=== PATIENT | male | born 1960 | race Hispanic/Latino ===

== ENCOUNTER 2019-09-02 09:20 | Inpatient (IN) | payer OTHER ==
[~2019-09-02] VITALS: Ht 165.1 cm; Wt 116.6 kg
[2019-09-02 10:10] LABS: BASOPHILS % 0.3 % (0.0-1.0); EOSINOPHILS # (AUTO) 0.2 (0.0-0.4); EOSINOPHILS % 1.6 % (0.0-6.0); HEMATOCRIT 36.7 % (38.2-49.6); HEMOGLOBIN 11.6 g/dL (14.0-18.0); LYMPHOCYTES # (AUTO) 1.2 (1.0-3.2); LYMPHOCYTES % 9.8 % (18.0-39.1); MEAN CORPUSCULAR HEMOGLOBIN 30.1 pg (28-32); MEAN CORPUSCULAR HGB CONC 31.6 g/dL (31-35); MEAN CORPUSCULAR VOLUME 95.1 fL (81-99); MONOCYTES # (AUTO) 0.9 (0.2-0.8); MONOCYTES % 7.1 % (4.4-11.3); NEUTROPHILS # (AUTO) 9.8 (2.1-6.9); PLATELET COUNT 207 x10e3/uL (140-360); RED BLOOD COUNT 3.86 x10e6/uL (4.3-5.7); RED CELL DISTRIBUTION WIDTH 13.1 % (11.7-14.4)
[2019-09-02] MEDS ORDERED: HYDROCHLOROTH12.5 MG PO (10:12)
[2019-09-02] MEDS ORDERED: SIMVASTATIN40 MG PO (10:12)
[2019-09-02] MEDS ORDERED: PIOGLITAZONE HC45 MG PO (10:12)
[2019-09-02] MEDS ORDERED: MOTRIN800 MG PO (10:12)
[2019-09-02] MEDS ORDERED: GLIPIZIDE-METF1 EAC2 PO (10:12)
[2019-09-02] MEDS ORDERED: LOSARTAN POTAS100 MG PO (10:12)
[2019-09-02 10:21] LABS: INR 0.92; PROTHROMBIN TIME 12.8 seconds (11.9-14.5)
[2019-09-02 10:22] LABS: PARTIAL THROMBOPLASTIN TIME 28.3 seconds (23.8-35.5)
[2019-09-02 10:29] LABS: ALBUMIN 3.5 g/dL (3.5-5.0); ALBUMIN/GLOBULIN RATIO 0.9 (0.8-2.0); CALCIUM 9.4 mg/dL (8.4-10.2); CREATININE, SERUM 1.44 mg/dL (0.72-1.25)
[2019-09-02 10:35] LABS: CREATINE KINASE MB 2.7 ng/mL (0-5.0)
[2019-09-02] MEDS ORDERED: INSULIN REGULAR, HUMAN 100 UNIT/1 ML 3ML VIAL SQ ONE (10:45)
--- NOTE | 2019-09-02 10:48 | Diagnostic Imaging Report ---
EXAMINATION: CHEST 2 VIEWS INDICATION: Respiratory distress COMPARISON: None FINDINGS: LINES/TUBES:Back or EKG LUNGS:The lungs are moderately inflated. There is perihilar fullness and indistinctness of the pulmonary vasculature. Bilateral lower lobe predominant airspace opacities. PLEURA:Circumferential small bilateral pleural effusion right greater than left. MEDIASTINUM:The heart is enlarged. BONES/SOFT TISSUES:No acute osseous injury. ABDOMEN:No free air under the diaphragm. IMPRESSION: Cardiomegaly, pulmonary edema, and small bilateral circumferential pleural effusions. Signed by: Robert Quinteros MD on 09/02/2019 10:45 AM
[2019-09-02] MEDS ORDERED: FUROSEMIDE INJ 10 MG/ML 4 ML VIAL IV ONE (11:15)
[2019-09-02] MEDS: LEVOFLOXACIN 750MG/D5W 150ML 150 ML IV SCH (13:17)
--- NOTE | 2019-09-02 13:19 | Diagnostic Imaging Report ---
EXAMINATION: CT of the chest with contrast, PE protocol. TECHNIQUE: Spiral CT images of the chest were performed from the lung apices through the level of the adrenal glands after the IV administration of 100 cc of Isovue-370. Thin section reconstructions were obtained with special concentration on the pulmonary arteries. COMPARISON: Chest radiograph same day CLINICAL HISTORY:Hypoxemia, cough, concern for pulmonary DISCUSSION: Vasculature: The main pulmonary artery and right and left pulmonary arteries are patent. There are multiple segmental hypoattenuating filling defects within both lower lower lobe pulmonary arterial systems, for example the superior segment of the left lower lobe seen on series 2 image 61, the anterior segment of the left lower lobe seen on series 2 image 70, the posterior basal segment of the left lower lobe seen on series 2, image 77, the anterior segment of the right lower lobe seen on series 2 image 70, in the posterior basal segment of the right lower lobe seen on series 2 image 79. Filling defects in the medial segmental artery of the right middle lobe are also seen on series 2 image 62. Anterior right upper lobe segmental pulmonary embolus is also noted on series 2 image 47. The pulmonary outflow tract is of normal caliber. No interventricular septal bowing or right ventricular dilatation. No ectasia or aneurysmal dilatation of the thoracic aorta. Great vessel origins are of normal caliber and configuration. Atherosclerotic calcifications of the left anterior descending coronary artery. Lungs: Multifocal patchy and confluent groundglass and consolidative opacities at highest density laterally within the right middle lobe, though affecting the left greater than right upper lobes and bilateral lower lobes as well. 6 mm juxtapleural left lower lobe solid nodule seen on series 3 image 84. 5 mm juxtapleural solid nodule left lower lobe seen on series 3 image 76. Airways: Trachea, mainstem bronchi, and central lobar and segmental bronchi are patent. Pleura: No pleural effusion or pneumothorax. Suspected pleural effusions on plain radiography same day shown to represent prominent extrapleural fat. Heart and mediastinum: Visualized portions of the thyroid gland appear normal. No axillary, hilar, or mediastinal lymphadenopathy. No pericardial effusion. Abdomen: Visualized portions of the liver, gallbladder, spleen, pancreas, and adrenals are unremarkable. Bones and soft tissues: No osseous destructive lesions. Multilevel degenerative disc changes of the thoracic spine. IMPRESSION: Bilateral segmental pulmonary emboli affecting the right upper, middle, and lower lobes and the left lower lobe as detailed above. No CT findings of right heart strain. Pulmonary parenchymal findings compatible with multifocal pneumonia affecting the right middle lobe to the greatest extent. 5 and 6 mm left lower lobe pulmonary nodules are likely also infectious in nature. Follow-up CT scan of the chest in 3-6 months after appropriate treatment is suggested to document resolution. Atherosclerotic vascular disease. Findings were discussed by telephone with Dr. Hernandez of the emergency center at 1:03 PM 09/02/2019. Signed by: Dr. Agustín Gee M.D. on 09/02/2019 1:16 PM
[2019-09-02] MEDS ORDERED: ENOXAPARIN SOD INJ 120 MG/0.8 ML SYR SC SCH (13:30)
[2019-09-02] MEDS ORDERED: ASPIRIN 81 MG CHEW TAB PO ONE (14:15)
[2019-09-02] MEDS ORDERED: SODIUM CHLORIDE FLUSH 10 ML SYR INJ PRN (14:15)
[2019-09-02 14:25] LABS: BILIRUBIN,URINE NEGATIVE (NEGATIVE); CLARITY,URINE CLEAR (CLEAR); COLOR,URINE YELLOW (YELLOW); KETONES,URINE NEGATIVE (NEGATIVE); LEUKOCYTE ESTERASE ,URINE NEGATIVE (NEGATIVE); NITRITE,URINE NEGATIVE (NEGATIVE); PROTEIN,URINE DIPSTICK NEGATIVE (NEGATIVE); URINE UROBILINOGEN 0.2 mg/dL (0.2 - 1)
[2019-09-02] MEDS ORDERED: LEVOFLOXACIN 750MG/D5W 150ML 150 ML IV SCH (14:30)
[2019-09-02] MEDS ORDERED: DEXTROSE 50% SYRINGE 50 ML IV PRN (14:45)
[2019-09-02] MEDS ORDERED: IOPAMIDOL 370 MG/ML 200 ML INFUS..BTL INJ ONE (14:52)
[2019-09-02] MEDS ORDERED: SODIUM CHLORIDE 0.9% 50ML 50 ML ONE (14:52)
[2019-09-02] MEDS: ALBUTEROL/IPRATROPIUM 3 ML NEB NEB SCH ×3 (15:00→23:39)
--- OUTSIDE RECORDS SUMMARY | 2019-09-02 15:10 | XMS REPORT ---
Author Author [facility] Address Unknown Phone Unavailable Care Team Providers Care Supervisor Policy Change Clerks Name Role Phone Nohemy FAIRCHILD Unavailable Unavailable Problems This patient has no known problems. Allergies, Adverse Reactions, Alerts This patient has no known allergies or adverse reactions. Medications This patient has no known medications. Results Test Description Test Time Test Comments Text Results Atomic Results Result Comments CT CHEST W 2019-09-02 13:03:00 [facility] [address] [place] [address] Patient Name: JUANY GARCIA MR #: [id number] : 1960 Age/Sex: 59/M Req #: [id number] Adm Physician: Ordered by: CAROLYN NGUYEN BRYOLOGIST Report #: [id number] Location: ER Room/Bed: Procedure: [id number] CT/CT CHEST W Exam Date: 09/02/19 Exam Time: 1230 REPORT STATUS: Signed EXAMINATION: CT of the chest with contrast, PE protocol. TECHNIQUE: Spiral CT images of the chest were performed from the lung apices through the level of the adrenal glands after the IV administration of 100 cc of Isovue-370. Thin section reconstructions were obtained with special concentration on the pulmonary arteries. COMPARISON: Chest radiograph same day CLINICAL HISTORY:Hypoxemia, cough, concern for pulmonary DISCUSSION: Vasculature: The main pulmonary artery and right and left pulmonary arteries are patent. There are multiple segmental hypoattenuating filling defects within both lower lower lobe pulmonary arterial systems, for example the superior segment of the left lower lobe seen on series 2 image 61, the anterior segment of the left lower lobe seen on series 2 image 70, the posterior basal segment of the left lower lobe seen on series 2, image 77, the anterior segment of the right lower lobe seen on series 2 image 70, in the posterior basal segment of the right lower lobe seen on series 2 image 79. Filling defects in the medial segmental artery of the right middle lobe are also seen on series 2 image 62. Anterior right upper lobe segmental pulmonary embolus is also noted on series 2 image 47. The pulmonary outflow tract is of normal caliber. No interventricular septal bowing or right ventricular dilatation. No ectasia or aneurysmal dilatation of the thoracic aorta. Great vessel origins are of normal caliber and configuration. Atherosclerotic calcifications of the left anterior descending coronary artery. Lungs: Multifocal patchy and confluent groundglass and consolidative opacities at highest density laterally within the right middle lobe, though affecting the left greater than right upper lobes and bilateral lower lobes as well. 6 mm juxtapleural left lower lobe solid nodule seen on series 3 image 84. 5 mm juxtapleural solid nodule left lower lobe seen on series 3 image 76. Airways: Trachea, mainstem bronchi, and central lobar and segmental bronchi are patent. Pleura: No pleural effusion or pneumothorax. Suspected pleural effusions on plain radiography same day shown to represent prominent extrapleural fat. Heart and mediastinum: Visualized portions of the thyroid gland appear normal. No axillary, hilar, or mediastinal lymphadenopathy. No pericardial effusion. Abdomen: Visualized portions of the liver, gallbladder, spleen, pancreas, and adrenals are unremarkable. Bones and soft tissues: No osseous destructive lesions. Multilevel degenerative disc changes of the thoracic spine. IMPRESSION: Bilateral segmental pulmonary emboli affecting the right upper, middle, and lower lobes and the left lower lobe as detailed above. No CT findings of right heart strain. Pulmonary parenchymal findings compatible with multifocal pneumonia affecting the right middle lobe to the greatest extent. 5 and 6 mm left lower lobe pulmonary nodules are likely also infectious in nature. Follow-up CT scan of the chest in 3-6 months after appropriate treatment is suggested to document resolution. Atherosclerotic vascular disease. Findings were discussed by telephone with Dr. Fairchild of the emergency center at 1:03 PM 09/02/2019. Signed by: Dr. Kayley Castro M.D. on 09/02/2019 1:16 PM Dictated By: KAYLEY CASTRO MD 15 Transcribed By: LA NENA on 09/02/191315 COPY TO: CAROLYN NGUYEN NP CHEST 2 VIEWS 2019-09-02 10:44:00 [place] [address] Patient Name: JUANY GARCIA MR #: [id number] : 1960 Age/Sex: 59/M Req #: [id number] Adm Physician: Ordered by: AKBAR FAIRCHILD MD Report #: [id number] Location: ER Room/Bed: Procedure: [id number] DX/CHEST 2 VIEWS Exam Date: 09/02/19 Exam Time: 916 REPORT STATUS: Signed EXAMINATION: CHEST 2 VIEWS INDICATION: Respiratory distress COMPARISON: None FINDINGS: LINES/TUBES:Back or EKG LUNGS:The lungs are moderately inflated. There is perihilar fullness and indistinctness of the pulmonary vasculature. Bilateral lower lobe predominant airspace opacities. PLEURA:Circumferential small bilateral pleural effusion right greater than left. MEDIASTINUM:The heart is enlarged. BONES/SO FT TISSUES:No acute osseous injury. ABDOMEN:No free air under the diaphragm. IMPRESSION: Cardiomegaly, pulmonary edema, and small bilateral circumferential pleural effusions. Signed by: Terrence Becker MD on 09/02/2019 10:45 AM Dictated By: TERRENCE BECKER MD 1045 Transcribed By: LA NENA on 09/02/19 104 COPY TO: AKBAR FAIRCHILD MD
[2019-09-02 15:26] LABS: ABG PCO2 45 mmHg (41-51); ABG PH 7.47 (7.31-7.41); ABG PO2 178 mmHg (80-105)
[2019-09-02 15:27] LABS: ABG HCO3 33 mmol/L (23-28)
[2019-09-02 15:30] VITALS: BP 132/58
--- NOTE | 2019-09-02 15:30 | NUR ---
Pt received from ER via stretcher with son & at bedside. Alert and oriented x4, Syrian speaking mostly. Oriented to staff and surroundings. Advised to press call shin if help needed. Emotional support given. Call shin within reach. Will monitor
[2019-09-02] MEDS: INSULIN REGULAR, HUMAN 100 UNIT/1 ML 3ML VIAL SQ SCH ×2 (16:23→20:34)
[2019-09-02] MEDS ORDERED: ACETAMINOPHEN 325 MG TAB PO PRN (17:15)
[2019-09-02] MEDS ORDERED: GUAIFENESIN 200 MG/10 ML UDC PO PRN (17:15)
--- NOTE | 2019-09-02 17:30 | NUR ---
Dr. Jacobs's office notified regarding consult. Will monitor
--- NOTE | 2019-09-02 17:36 | Pre Op History & Physical ---
Mr. 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 CHIEF COMPLAINT: He is sent from Dr. Pang's office, where he presented this morning with a week's worth of coughing. Evidently, chest x-ray suggested pneumonia. PAST MEDICAL HISTORY: Significant for longstanding diabetes at least 20 years. The patient denies any history of any cardiac problem to me. He says he has never had any surgeries before. HOME MEDICATIONS: Include furosemide, famotidine, lisinopril 10 mg daily, Actos 45 mg daily, simvastatin 40 mg daily, and spironolactone 25 mg daily. PERSONAL AND SOCIAL HISTORY: He does not smoke or drink. Works in maintenance. REVIEW OF SYSTEMS: GENERAL: He reports that he has probably gained some weight in the last year. PHYSICAL EXAMINATION: GENERAL: At this time shows an obese, man speaking primarily Peruvian. VITAL SIGNS: He is 5 feet 5 inches tall, weighs 257 pounds, blood pressure 130/60, pulse is 90 and regular. HEAD, EYES, EARS, NOSE, AND THROAT: Unremarkable. NECK: Very thick. No jugular venous distention visible. No bruits. THORAX: Heart sounds S1 and S2 are equal. No murmurs. LUNGS: Relatively clear. ABDOMEN: Markedly protuberant. EXTREMITIES: Have some trophic changes, but no significant edema. LABORATORY DATA: CAT scan of the chest suggests probable right middle lobe pneumonia and multiple pulmonary emboli. White count 12.0. Presenting glucose 471, BUN 24, and creatinine 1.4. ASSESSMENT: 1. Pneumonia. 2. Multiple pulmonary emboli. 3. Longstanding diabetes, probably poorly controlled. He tells me he never checks fingerstick blood sugar. 4. Obesity. PLAN: We will continue home medications, broad-spectrum antibiotic coverage, and we will start Xarelto for DVT and pulmonary emboli. We will check echo and venous Doppler scan of the legs. Further management based on clinical course. MD KASSY Gamino/MODL /[id number] cc: MaxMD Shen Quintanilla MD George M Nassif, MD
[2019-09-02] MEDS: FUROSEMIDE INJ 10 MG/ML 4 ML VIAL IV SCH (17:48)
[2019-09-02] MEDS: FAMOTIDINE 20 MG/2 ML VIAL IV SCH (17:48)
[2019-09-02] MEDS: RIVAROXABAN 15 MG TABLET PO SCH (17:48)
[2019-09-02 18:28] LABS: CREATINE KINASE MB 2.3 ng/mL (0-5.0)
[2019-09-02 19:00] VITALS: BP 120/71
[2019-09-02] MEDS: SIMVASTATIN 40 MG TAB PO SCH (20:33)
[2019-09-02 21:00] VITALS: BP 120/71
[2019-09-02] MEDS ORDERED: ENOXAPARIN SODIUM INJ 100 MG/ML SYR SC SCH (21:00)
[2019-09-02 23:00] VITALS: BP 98/61
[2019-09-03] VITALS (7 sets, daily range): BP systolic 105–130; BP diastolic 51–77
--- NOTE | 2019-09-03 00:37 | Consultation ---
DATE OF CONSULTATION: 09/02/2019 Pulmonary Medicine Consult PRIMARY CARE DOCTOR: Dr. Max Pang. HISTORY OF PRESENT ILLNESS: Mr. Monroe is a pleasant 59-year-old gentleman with coughing. The patient came to emergency room, sent from his primary care doctor's office. The patient has 1 week of symptoms. The patient with worsening pattern of symptoms. The patient comes to the emergency room. Heart rate is 137 beats per minute. Temperature was normal. The patient had a white blood count of 12,000, creatinine 1.4. Chest x-ray, bilateral pneumonia. CT angiography of chest with main PA artery of 34 mm size, bilateral small pulmonary emboli, nodules up to 6 mm in size. He is admitted and I am consulted. PAST MEDICAL HISTORY: Diabetes, obesity, hypertension, hyperlipidemia. MEDICATIONS: Medication list reviewed per the chart record. ALLERGIES: NO KNOWN DRUG ALLERGIES. SOCIAL HISTORY: The patient drinks 12 beers per week, but quit a few years ago. He smoked tobacco only for 8 years of his life. He is mainly a nonsmoker. No drugs. He works in industrial maintenance. He lives with 2 sons and , who are age 21 and 24 and are healthy. FAMILY HISTORY: Noncontributory. REVIEW OF SYSTEMS: GENERAL: No recent weight loss. HENT: No mouth ulcers. OPHTHALMOLOGIC: No blurry vision. ENDOCRINE: No thyroid disease. PULMONARY: No known asthma. CARDIAC: No heart attack. GI: No constipation. : No blood in urine. DERMATOLOGIC: No rash. NEUROLOGIC: No seizures. PHYSICAL EXAMINATION: VITAL SIGNS: Afebrile, vital signs noted and reviewed per the chart record. GENERAL: In no acute distress, alert and calm now. Intermittent cough. HEENT: Normocephalic and atraumatic. NECK: Supple. Throat midline. LUNGS: Bilateral air entry, rare rhonchi. CARDIOVASCULAR: S1 and S2. No murmurs, rubs, or gallops. ABDOMEN: Soft, nontender, obese. EXTREMITIES: No clubbing. No cyanosis. There is 1+ edema. INTEGUMENT: No rash. No purpura. LABORATORY DATA: Labs included presenting glucose of 471. Bicarbonate 30. Platelets 207. IMPRESSION AND PLAN: 1. Bilateral pneumonia, community-acquired. 2. Bilateral pulmonary emboli. Onset can be anywhere from provoked due to pneumonia versus unprovoked from 3 months ago given his history of leg swelling on the right leg. 3. Longstanding diabetes. 4. Hyperlipidemia. 5. Hypertension. 6. 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 7. Obesity, suspected obstructive sleep apnea. At this time, the patient should continue antibiotics. Ensure chest x-ray improves. Continue anticoagulation, which has been changed from Lovenox to long-acting novel oral anticoagulant. The patient should have outpatient sleep study. We wait lower extremity Doppler and if there is no high burden of clots, he may be able to mobilize earlier and go home earlier. We will follow along closely. Thank you very much, Dr. Flores and Dr. Pang, for allowing me a chance to participate in the care of Mr. Monroe. MD VIOLETA Medina/RYAN /[id number]
[2019-09-03 02:11] LABS: CREATINE KINASE MB 1.9 ng/mL (0-5.0)
[2019-09-03] MEDS: ALBUTEROL/IPRATROPIUM 3 ML NEB NEB SCH ×6 (03:45→23:22)
[2019-09-03 05:25] LABS: BASOPHILS % 0.5 % (0.0-1.0); EOSINOPHILS # (AUTO) 0.3 (0.0-0.4); EOSINOPHILS % 3.2 % (0.0-6.0); HEMATOCRIT 36.4 % (38.2-49.6); HEMOGLOBIN 11.6 g/dL (14.0-18.0); LYMPHOCYTES # (AUTO) 1.8 (1.0-3.2); LYMPHOCYTES % 20.6 % (18.0-39.1); MEAN CORPUSCULAR HEMOGLOBIN 30.2 pg (28-32); MEAN CORPUSCULAR HGB CONC 31.9 g/dL (31-35); MEAN CORPUSCULAR VOLUME 94.8 fL (81-99); MONOCYTES # (AUTO) 0.8 (0.2-0.8); MONOCYTES % 9.6 % (4.4-11.3); NEUTROPHILS # (AUTO) 5.6 (2.1-6.9); NEUTROPHILS % 65.7 % (38.7-80.0); PLATELET COUNT 197 x10e3/uL (140-360); RED BLOOD COUNT 3.84 x10e6/uL (4.3-5.7); RED CELL DISTRIBUTION WIDTH 13.2 % (11.7-14.4)
[2019-09-03 05:45] LABS: ALANINE AMINOTRANSFERASE 10 IU/L (0-55); ALBUMIN 3.3 g/dL (3.5-5.0); ALBUMIN/GLOBULIN RATIO 0.9 (0.8-2.0); ALKALINE PHOSPHATASE 90 IU/L (40-150); ANION GAP 13.4 mmol/L (8-16); BLOOD UREA NITROGEN 23 mg/dL (7-26); BUN/CREATININE RATIO 19 (6-25); CALCIUM 9.1 mg/dL (8.4-10.2); CARBON DIOXIDE 31 mmol/L (22-29); CHLORIDE 101 mmol/L (98-107); CREATININE, SERUM 1.22 mg/dL (0.72-1.25); EST GLOMERULAR FILTRATION RATE > 60 ML/MIN (60-); GLUCOSE 132 mg/dL (74-118); POTASSIUM 3.4 mmol/L (3.5-5.1); SODIUM 142 mmol/L (136-145)
--- NOTE | 2019-09-03 07:10 | NUR ---
Pt received resting in bed with at bedside. Emotional support given. Call shin within reach. Will monitor
[2019-09-03] MEDS: INSULIN REGULAR, HUMAN 100 UNIT/1 ML 3ML VIAL SQ SCH ×2 (08:34→11:30)
[2019-09-03] MEDS: LISINOPRIL 10 MG TAB PO SCH (08:35)
[2019-09-03] MEDS: SPIRONOLACTONE 25 MG TAB PO SCH (08:35)
[2019-09-03] MEDS: FUROSEMIDE INJ 10 MG/ML 4 ML VIAL IV SCH ×2 (08:35→17:12)
[2019-09-03] MEDS: FAMOTIDINE 20 MG/2 ML VIAL IV SCH ×2 (08:35→17:12)
[2019-09-03] MEDS: LOSARTAN POTASSIUM 100 MG TAB PO SCH (08:35)
[2019-09-03] MEDS: RIVAROXABAN 15 MG TABLET PO SCH ×2 (08:35→17:12)
[2019-09-03] MEDS ORDERED: PIOGLITAZONE HCL 45 MG TAB PO SCH (09:00)
[2019-09-03] MEDS ORDERED: LEVOFLOXACIN 750MG/D5W 150ML IV SCH (09:00)
[2019-09-03 10:38] LABS: CREATINE KINASE MB 2.2 ng/mL (0-5.0)
--- NOTE | 2019-09-03 13:52 | Diagnostic Imaging Report ---
EXAMINATION: CHEST SINGLE (PORTABLE) INDICATION: Pneumonia. COMPARISON: 09/02/2019. FINDINGS: LINES/TUBES:None. LUNGS: Pulmonary vascular congestion and perihilar opacities have improved suggestive of improving pulmonary edema. Bilateral patchy calcifications have also improved from prior exam. PLEURA: Bilateral pleural effusions have nearly completely resolved. MEDIASTINUM:The heart is enlarged, unchanged from prior exam. BONES/SOFT TISSUES:No acute osseous injury. ABDOMEN:No free air under the diaphragm. IMPRESSION: 1. Improved pulmonary edema. 2. Improved bilateral patchy consolidations/pneumonia. Signed by: Eladio Kessler MD on 09/03/2019 7:28 AM
[2019-09-03] MEDS: LEVOFLOXACIN 750MG/D5W 150ML 150 ML IV SCH (14:05)
--- NOTE | 2019-09-03 16:28 | NUR ---
Pulmonary Medicine DATE: 09/03/2019 SUBJECTIVE: 4 L/min oxygen, 96% saturation 83-85% RA CXR with decreased pneumonia US legs with NO DVT REVIEW OF SYSTEMS: no double vision, no bleeding PHYSICAL EXAMINATION: VITAL SIGNS: vital signs noted per the chart record. GENERAL: NAD, alert and calm HEENT: Normocephalic and atraumatic. NECK: Supple. Throat midline. LUNGS: Bilateral air entry, rare rhonchi. CARDIOVASCULAR: S1 and S2. No murmurs, rubs, or gallops. ABDOMEN: Soft, nontender, obese. EXTREMITIES: No clubbing. No cyanosis. 1+ edema INTEGUMENT: No rash. No purpura. LABORATORY DATA: k 3.4, cr 1.22, wbc 8.54, hct 36, plt 197. IMPRESSION AND PLAN: 1. Bilateral pneumonia, community-acquired. 2. Bilateral pulmonary emboli. Likely provoked from pneumonia. There is a competing history of right leg edema x 3 months. 3. Longstanding diabetes. 4. Hyperlipidemia. 5. Hypertension. 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 Obesity, suspected obstructive sleep apnea. Possible obesity hypoventilation syndrome. continue antibiotics ensure chest x-ray improves, could be a 6-8 weeks follow up CXR if he continues to improve continue anticoagulation, NOAC outpatient sleep study ambulate the patient to check his cardiopulmonary reserve. patient has +hypoxemia and may require home oxygen. Thank you very much, Dr. Flores and Dr. Pang, for allowing me a chance to participate in the care of Mr. Monroe.
[2019-09-03] MEDS ORDERED: POTASSIUM CHLORIDE 20 MEQ TAB CR PO ONE (17:00)
[2019-09-03] MEDS: INSULIN LISPRO 100 UNIT/1 ML 3ML VIAL SQ SCH ×3 (17:14→20:26)
[2019-09-03] MEDS: INSULIN GLARGINE 100 UNITS/ML VIAL SQ SCH (20:30)
[2019-09-03] MEDS: SIMVASTATIN 40 MG TAB PO SCH (20:36)
[2019-09-03] MEDS ORDERED: INSULIN GLARGINE 100 UNITS/ML VIAL SQ SCH (21:00)
--- NOTE | 2019-09-03 22:22 | Consultation ---
DATE OF CONSULTATION: 09/03/2019 Endocrine Consultation This is a patient of Dr. Ellis Flores and Dr. Pang. Thank you very much for referring this patient. HISTORY OF PRESENT ILLNESS: This is a 59-year-old gentleman, who was referred to me for evaluation of uncontrolled diabetes mellitus. The patient reportedly is a known diabetic for almost 15 years and takes a combination of glyburide, metformin, and Actos at home. He came to the hospital with history of chest pain. On further evaluation, he was found to have pulmonary embolism and right-sided pneumonia. The patient has history of longstanding hypertension, hyperlipidemia, and obesity. At the time of admission, his blood sugar was 471 and anion gap was normal. The patient is on several medications at home including simvastatin 40 mg once daily, lisinopril 10 mg once daily. PHYSICAL EXAMINATION: GENERAL: Today, the patient is alert, awake, little bit apprehensive. He is moderately overweight. VITAL SIGNS: His heart rate is around 78, blood pressure 140/80 mmHg. HEENT: Essentially unremarkable. Thyroid is palpable. Clinically, he is near euthyroid. CHEST: Bilateral vesicular breathing. No rales. CARDIOVASCULAR: First and second heart sounds. There is no third or fourth heart sound. There is ejection systolic murmur grade 2/6. EXTREMITIES: The patient has evidence of diabetic sensorimotor neuropathy in both lower extremities and mild to moderate pedal edema. CLINICAL IMPRESSION: 1. Diabetes mellitus type 2, uncontrolled with complications. 2. Pulmonary embolism. 3. Pneumonia. 4. Hyperlipidemia. 5. Hypertension. 6. Obesity. PLAN: At this time is to stop the glipizide and metformin and also pioglitazone. Start him on combination of the Lantus and Humalog insulin. We will also monitor his blood sugars closely. The patient also needs extensive diabetic and dietary education. Thanks again for referring this patient. I will be following this patient with you. MD ZARI Medrano/MODL /[id number]
[2019-09-04] VITALS (9 sets, daily range): BP systolic 95–135; BP diastolic 44–82
[2019-09-04] MEDS: ALBUTEROL/IPRATROPIUM 3 ML NEB NEB SCH ×6 (03:12→23:32)
[2019-09-04] MEDS: INSULIN LISPRO 100 UNIT/1 ML 3ML VIAL SQ SCH ×7 (08:00→21:00)
[2019-09-04] MEDS: SPIRONOLACTONE 25 MG TAB PO SCH (08:17)
[2019-09-04] MEDS: FAMOTIDINE 20 MG/2 ML VIAL IV SCH ×2 (08:17→17:20)
[2019-09-04] MEDS: RIVAROXABAN 15 MG TABLET PO SCH ×2 (08:17→17:20)
[2019-09-04] MEDS: FUROSEMIDE INJ 10 MG/ML 4 ML VIAL IV SCH ×2 (08:17→17:20)
--- NOTE | 2019-09-04 08:33 | Diagnostic Imaging Report ---
EXAMINATION: CHEST SINGLE (PORTABLE) INDICATION: Pneumonia. COMPARISON: Chest radiograph 09/03/2019. CT chest 09/02/2019. FINDINGS: LINES/TUBES:None. LUNGS: Central vascular congestion with mild pulmonary interstitial opacities. Consolidative opacity in the right midlung is slightly decreased from the prior study. Patchy opacities in the lower lung zones. PLEURA: Trace bilateral pleural effusions. MEDIASTINUM:The heart is enlarged, unchanged from prior exam. BONES/SOFT TISSUES:No acute osseous injury. ABDOMEN:No free air under the diaphragm. IMPRESSION: Findings of multifocal pneumonia, slightly decreased in the right middle lung. Mild pulmonary interstitial edema. Signed by: Dr. Brady Bryson MD on 09/04/2019 8:29 AM
[2019-09-04] MEDS: LOSARTAN POTASSIUM 100 MG TAB PO SCH (09:44)
[2019-09-04] MEDS: LISINOPRIL 10 MG TAB PO SCH (09:44)
[2019-09-04] MEDS: LEVOFLOXACIN 750MG/D5W 150ML 150 ML IV SCH (14:20)
[2019-09-04] MEDS: SIMVASTATIN 40 MG TAB PO SCH (21:20)
[2019-09-04] MEDS: INSULIN GLARGINE 100 UNITS/ML VIAL SQ SCH (21:30)
[2019-09-05] VITALS (8 sets, daily range): BP systolic 100–125; BP diastolic 48–70
--- NOTE | 2019-09-05 02:07 | NUR ---
Pulmonary Medicine DATE: 09/04/2019 SUBJECTIVE: 1 L/min oxygen 96% saturation sitting up mild nose bleeds REVIEW OF SYSTEMS: no double vision, no bleeding PHYSICAL EXAMINATION: VITAL SIGNS: vital signs noted per the chart record. GENERAL: NAD, alert, calm HEENT: Normocephalic and atraumatic. NECK: Supple. Throat midline. LUNGS: Bilateral air entry, rare rhonchi. CARDIOVASCULAR: S1 and S2. No murmurs, rubs, or gallops. ABDOMEN: Soft, nontender, obese. EXTREMITIES: No clubbing. No cyanosis. trace+ edema INTEGUMENT: No rash. No purpura. LABORATORY DATA: no new updates IMPRESSION AND PLAN: 1. Bilateral pneumonia, community-acquired. 2. Bilateral pulmonary emboli. Likely provoked from pneumonia. There is a competing history of right leg edema x 3 months. 3. Longstanding diabetes. 4. Hyperlipidemia. 5. Hypertension. 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 Obesity, suspected obstructive sleep apnea. Possible obesity hypoventilation syndrome. 8. hypoxemia NOS continue antibiotics ensure chest x-ray improves, could be a 6-8 weeks follow up CXR if he continues to improve continue anticoagulation, NOAC outpatient sleep study ambulate the patient to check his cardiopulmonary reserve. patient has +hypoxemia and may require home oxygen. follow echocardiogram Thank you very much, Dr. Flores and Dr. Pang, for allowing me a chance to participate in the care of Mr. Monroe.
[2019-09-05] MEDS: ALBUTEROL/IPRATROPIUM 3 ML NEB NEB SCH ×6 (03:45→23:18)
--- NOTE | 2019-09-05 04:36 | NUR ---
sputum sample was sent to lab
[2019-09-05] MEDS: INSULIN LISPRO 100 UNIT/1 ML 3ML VIAL SQ SCH ×7 (07:33→20:52)
[2019-09-05] MEDS: RIVAROXABAN 15 MG TABLET PO SCH ×2 (07:58→17:16)
[2019-09-05] MEDS: FUROSEMIDE INJ 10 MG/ML 4 ML VIAL IV SCH ×2 (07:58→17:16)
[2019-09-05] MEDS: FAMOTIDINE 20 MG/2 ML VIAL IV SCH ×2 (07:58→17:16)
[2019-09-05] MEDS: SPIRONOLACTONE 25 MG TAB PO SCH (08:06)
[2019-09-05] MEDS: LOSARTAN POTASSIUM 100 MG TAB PO SCH (08:06)
[2019-09-05] MEDS: LISINOPRIL 10 MG TAB PO SCH (08:07)
[2019-09-05] MEDS: LEVOFLOXACIN 750MG/D5W 150ML 150 ML IV SCH (13:53)
[2019-09-05] MEDS: SIMVASTATIN 40 MG TAB PO SCH (20:52)
[2019-09-05] MEDS: INSULIN GLARGINE 100 UNITS/ML VIAL SQ SCH (20:53)
--- NOTE | 2019-09-05 23:52 | NUR ---
Pulmonary Medicine DATE: 09/05/2019 SUBJECTIVE: 94% saturation RA at rest 90% saturation RA on exertion sat up eating well REVIEW OF SYSTEMS: no double vision, no rash PHYSICAL EXAMINATION: VITAL SIGNS: vital signs noted per the chart record. GENERAL: NAD, alert, calm HEENT: Normocephalic and atraumatic. NECK: Supple. Throat midline. LUNGS: Bilateral air entry, rare rhonchi. CARDIOVASCULAR: S1 and S2. No murmurs, rubs, or gallops. ABDOMEN: Soft, nontender, obese. EXTREMITIES: No clubbing. No cyanosis. trace+ edema INTEGUMENT: No rash. No purpura. LABORATORY DATA: no new updates IMPRESSION AND PLAN: 1. Bilateral pneumonia, community-acquired. 2. Bilateral pulmonary emboli. Likely provoked from pneumonia. There is a competing history of right leg edema x 3 months. 3. Longstanding diabetes. 4. Hyperlipidemia. 5. Hypertension. 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 Obesity, suspected obstructive sleep apnea. Possible obesity hypoventilation syndrome. 8. hypoxemia NOS continue antibiotics ensure chest x-ray improves, could be a 6-8 weeks follow up CXR if he continues to improve continue anticoagulation, NOAC outpatient sleep study ambulate no home oxygen required follow echocardiogram Thank you very much, Dr. Flores and Dr. Pang, for allowing me a chance to participate in the care of Mr. Monroe.
[2019-09-06] VITALS: BP 117/66
[2019-09-06] MEDS: ALBUTEROL/IPRATROPIUM 3 ML NEB NEB SCH ×4 (03:25→15:15)
[2019-09-06 04:00] VITALS: BP 121/70
--- NOTE | 2019-09-06 07:00 | NUR ---
BEDSIDE SHIFT REPORT RECEIVED PT IN STABLE CONDITION, UPDATED ON POC VOICED UNDERSTANDING, DENIES PAIN AT THIS TIME, CALL LIGHT IN REACH WILL CONTINUE TO MONITOR
[2019-09-06] MEDS: INSULIN LISPRO 100 UNIT/1 ML 3ML VIAL SQ SCH ×6 (07:30→16:30)
[2019-09-06] MEDS: LISINOPRIL 10 MG TAB PO SCH (08:07)
[2019-09-06] MEDS: SPIRONOLACTONE 25 MG TAB PO SCH (08:07)
[2019-09-06] MEDS: LOSARTAN POTASSIUM 100 MG TAB PO SCH (08:07)
[2019-09-06] MEDS: RIVAROXABAN 15 MG TABLET PO SCH ×2 (08:07→17:00)
[2019-09-06] MEDS: FUROSEMIDE INJ 10 MG/ML 4 ML VIAL IV SCH ×2 (08:07→17:00)
[2019-09-06] MEDS: FAMOTIDINE 20 MG/2 ML VIAL IV SCH ×2 (08:07→17:19)
[2019-09-06 08:12] VITALS: BP 116/70
[2019-09-06 12:15] VITALS: BP 108/70
[2019-09-06] MEDS: LEVOFLOXACIN 750MG/D5W 150ML 150 ML IV SCH (12:15)
[2019-09-06] MEDS ORDERED: PROAIR HFA INH8.5 GM INH (12:23)
[2019-09-06] MEDS ORDERED: LEVAQUIN500 MG PO (12:23)
[2019-09-06] MEDS ORDERED: MAGNESIUM HYDROXIDE 30 ML UDC PO PRN (14:00)
[2019-09-06] MEDS: DOCUSATE SODIUM 100 MG CAP PO SCH ×2 (14:11→17:00)
--- NOTE | 2019-09-06 15:40 | NUR ---
spoke with dr wei RE: pt had a bm, no prescription and dc order, states he will see pt after clinic and dc home
[2019-09-06] MEDS ORDERED: LANTUS 3ML100 UNITS/ SQ (17:26)
[2019-09-06] MEDS ORDERED: HUMALOG100 UNIT/3 SQ (17:27)
--- NOTE | 2019-09-06 21:30 | NUR ---
Pulmonary Medicine DATE: 09/06/2019 SUBJECTIVE: sat up eating well walked with ease REVIEW OF SYSTEMS: no double vision, no rash PHYSICAL EXAMINATION: VITAL SIGNS: vital signs noted per the chart record. GENERAL: NAD, alert, calm HEENT: Normocephalic and atraumatic. NECK: Supple. Throat midline. LUNGS: Bilateral air entry, rare rhonchi. CARDIOVASCULAR: S1 and S2. No murmurs, rubs, or gallops. ABDOMEN: Soft, nontender, obese. EXTREMITIES: No clubbing. No cyanosis. trace+ edema INTEGUMENT: No rash. No purpura. LABORATORY DATA: no new updates IMPRESSION AND PLAN: 1. Bilateral pneumonia, community-acquired. 2. Bilateral pulmonary emboli. Likely provoked from pneumonia. There is a competing history of right leg edema x 3 months. 3. Longstanding diabetes. 4. Hyperlipidemia. 5. Hypertension. 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 Obesity, suspected obstructive sleep apnea. Possible obesity hypoventilation syndrome. 8. hypoxemia NOS continue antibiotics ensure chest x-ray improves, could be a 6-8 weeks follow up CXR if he continues to improve continue anticoagulation, NOAC outpatient sleep study ambulate no home oxygen required follow echocardiogram final report Thank you very much, Dr. Flores and Dr. Pang, for allowing me a chance to participate in the care of Mr. Monroe.
--- NOTE | 2019-09-07 01:17 | Discharge Summary ---
Mr. Monroe is a very complex and obese 59-year-old man, who speaks primarily German, with diabetes, hypertension, and hyperlipidemia, who presented to the emergency room with shortness of breath and cough. HOSPITAL COURSE: Initial CAT scan of the chest suggested pneumonia and pulmonary emboli. He was seen by Dr. Sims, who began broad-spectrum antibiotics. He was placed on Xarelto 15 mg b.i.d. His initial glucose was 444 and 471. He was seen by Dr. Jacobs, who stopped his oral hypoglycemic agents and placed him on insulin regimen. The patient initially was hypoxic, was supported with nasal cannula oxygen; however, this rapidly improved. He did have some nose bleed, which was stopped by pressure. Today, the patient is ambulating, has successfully had bowel movement, and is discharged to home. He will use the Xarelto starter pack, which is 15 mg b.i.d. for 3 weeks followed by 20 mg daily for another 9 days in the package. He will anticipate need of anticoagulation for somewhere between 6 weeks and 6 months. He has insulin regimen written by Dr. Jacobs and Levaquin 500 mg for 3 more days written by Dr. Sims as well as a ProAir inhaler. He will follow up with Endocrinology in [address] Sims and myself in 2 weeks. He will follow up with Dr. Pang on a regular basis. DISCHARGE DIAGNOSES: 1. Pneumonia. 2. Pulmonary emboli. 3. Uncontrolled diabetes. 4. Hypertension. 5. Hyperlipidemia. MD KASSY Gamino/MODL /[id number] cc: MD Alex Medrano MD Ramon A Pineda, MD
== END 2019-09-06 18:06 | disposition home or self-care (01) | DRG 175 ==
LOC: ER 09:20 → ERHOLD 14:07 → IMCU 16:04
PROVIDERS: ADMIT Internal Medicine Cardiovascular Disease; ATTEND Internal Medicine Cardiovascular Disease
DX: I26.99 Other pulmonary embolism without acute cor pulmonale (principal); J15.9 Unspecified bacterial pneumonia; I50.23 Acute on chronic systolic (congestive) heart failure; Z68.41 Body mass index [BMI] 40.0-44.9, adult; J90 Pleural effusion, not elsewhere classified; E66.9 Obesity, unspecified; E10.65 Type 1 diabetes mellitus with hyperglycemia; I51.7 Cardiomegaly; E78.5 Hyperlipidemia, unspecified; Z82.49 Family history of ischemic heart disease and other diseases of the circulatory system; R09.02 Hypoxemia; G47.33 Obstructive sleep apnea (adult) (pediatric); T75.89XA Other specified effects of external causes, initial encounter; K59.00 Constipation, unspecified; R04.0 Epistaxis
CPT/HCPCS: 36415; 36600; 71045; 71046; 71260; 80053; 81001; 82550; 82553; 82805; 82948; 83036; 83605; 83735; 83880; 84439; 84443; 84484; 85025; 85379; 85610; 85730; 87040; 87070; 87086; 87205; 93005; 93306; 93970; 94640; 96372; 99285; J1650; J1815; J1817; J1940; Q9967

== ENCOUNTER → 2024-10-07 | Outpatient (REF) | payer MEDICARE ==
[~2024-10-07] MED LIST: CLOPIDOGREL75 MG PO; FUROSEMIDE40 MG PO; GLIMEPIRIDE2 MG PO; GLIPIZIDE-METF1 EAC2 PO; HUMALOG100 UNIT/3 SQ; HYDROCHLOROTH12.5 MG PO; LANTUS 3ML100 UNITS/ SQ; LEVAQUIN500 MG PO; LIPITOR20 MG PO; LOSARTAN POTAS100 MG PO; MOTRIN800 MG PO; OZEMPIC0.25 MG/02 SQ; PIOGLITAZONE HC45 MG PO; PROAIR HFA INH8.5 GM INH; SIMVASTATIN40 MG PO; TRESIBA100 UNIT/1 SQ; ZESTRIL40 MG PO
== END ==
LOC: US 07:41
PROVIDERS: ATTEND Internal Medicine Gastroenterology
DX: R74.8 Abnormal levels of other serum enzymes (principal)
CPT/HCPCS: 76705

== ENCOUNTER → 2024-10-11 | Day surgery (SDC) | payer MEDICARE ==
[2024-10-07 09:38] LABS: BASOPHILS # (AUTO) 0.1 (0.0-0.1); BASOPHILS % 0.9 % (0.0-1.0); EOSINOPHILS # (AUTO) 0.8 (0.0-0.4); EOSINOPHILS % 7.7 % (0.0-6.0); HEMATOCRIT 46.2 % (38.2-49.6); HEMOGLOBIN 14.4 g/dL (14.0-18.0); LYMPHOCYTES # (AUTO) 2.4 (1.0-3.2); LYMPHOCYTES % 23.4 % (18.0-39.1); MEAN CORPUSCULAR HEMOGLOBIN 30.3 pg (28-32); MEAN CORPUSCULAR HGB CONC 31.2 g/dL (31-35); MEAN CORPUSCULAR VOLUME 97.3 fL (81-99); MONOCYTES # (AUTO) 0.7 (0.2-0.8); MONOCYTES % 7.2 % (4.4-11.3); NEUTROPHILS % 59.4 % (38.7-80.0); PLATELET COUNT 212 x10e3/uL (140-360); RED BLOOD COUNT 4.75 x10e6/uL (4.3-5.7); RED CELL DISTRIBUTION WIDTH 11.9 % (11.7-14.4); WHITE BLOOD COUNT 10.08 x10e3/uL (4.8-10.8)
[~2024-10-11] MED LIST changes: +FENTANYL CITRATE/PF 100MCG/2 ML INJ ONE; +GLYCOPYRROLATE INJ 0.2 MG/ML VIAL ONE; +LIDOCAINE HCL 2% LOCAL INJ 5 ML SDV VIAL INJ ONE; +PROPOFOL IV EMULSION 10 MG/ML 20 ML VIAL ONE
[2024-10-11] MEDS: LACTATED RINGER'S 1,000 ML ONE (09:29)
[2024-10-11 14:00] VITALS: BP 111/69; PULSE 87; RESP 18; TEMP 97.2; O2SAT 95
== END | disposition home or self-care (01) ==
LOC: OR 08:45
PROVIDERS: ATTEND Internal Medicine Gastroenterology
DX: K21.9 Gastro-esophageal reflux disease without esophagitis (principal); D12.3 Benign neoplasm of transverse colon; D12.8 Benign neoplasm of rectum; K29.50 Unspecified chronic gastritis without bleeding; K31.89 Other diseases of stomach and duodenum; K44.9 Diaphragmatic hernia without obstruction or gangrene; K64.8 Other hemorrhoids; E11.9 Type 2 diabetes mellitus without complications; I10 Essential (primary) hypertension; E78.5 Hyperlipidemia, unspecified; R06.02 Shortness of breath; E66.01 Morbid (severe) obesity due to excess calories; Z01.810 Encounter for preprocedural cardiovascular examination; Z01.812 Encounter for preprocedural laboratory examination; Z79.02 Long term (current) use of antithrombotics/antiplatelets; Z79.84 Long term (current) use of oral hypoglycemic drugs; Z79.4 Long term (current) use of insulin; Z79.85 Long-term (current) use of injectable non-insulin antidiabetic drugs; Z79.899 Other long term (current) drug therapy; Z68.41 Body mass index [BMI] 40.0-44.9, adult; Z86.718 Personal history of other venous thrombosis and embolism; Z86.711 Personal history of pulmonary embolism; Z87.891 Personal history of nicotine dependence; Z87.898 Personal history of other specified conditions; Z80.0 Family history of malignant neoplasm of digestive organs
CPT/HCPCS: 36415; 43239; 45378; 85025; 88305; 88312; 93005; J2003

== ENCOUNTER → 2025-02-09 | Outpatient (REF) | payer MEDICARE ==
[~2025-02-09] MED LIST changes: -FENTANYL CITRATE/PF 100MCG/2 ML INJ ONE; -GLYCOPYRROLATE INJ 0.2 MG/ML VIAL ONE; -LIDOCAINE HCL 2% LOCAL INJ 5 ML SDV VIAL INJ ONE; -PROPOFOL IV EMULSION 10 MG/ML 20 ML VIAL ONE
== END ==
LOC: DX 07:54
PROVIDERS: ATTEND Nurse Practitioner Family
DX: R93.3 Abnormal findings on diagnostic imaging of other parts of digestive tract (principal); K21.9 Gastro-esophageal reflux disease without esophagitis; K44.9 Diaphragmatic hernia without obstruction or gangrene
CPT/HCPCS: 74246; 74250